=== PATIENT | female | born 1965 | race Two or more races ===

== ENCOUNTER 2020-08-31 10:48 | Emergency (ER) | payer OTHER ==
[~2020-08-31] VITALS: Ht 167.6 cm; Wt 68.9 kg
[~2020-08-31 10:48] MED LIST: ASA81 MG; BACTROBAN OINT22 GM TP; CATAFLAM50 MG PO; COZAAR100 MG; DURICEF 500 MG PO; HYDROCHLOROTHIA25 MG; LEVAQUIN500 MG PO; MEDROL4 MG PO; URIN D.S. TABLE1 TAB PO
[2020-08-31] MEDS ORDERED: MONTELUKAST SODI4 M1 (11:37)
[2020-08-31] MEDS ORDERED: MEDROLPACK PO (16:51)
== END 2020-08-31 17:29 | disposition home or self-care (01) ==
LOC: ER 10:48
DX: L50.0 Allergic urticaria (principal)